=== PATIENT | female | born 1945 | race Caucasian/White ===

== ENCOUNTER 2021-05-22 13:03 | Emergency (ER) | payer MEDICARE, OTHER ==
[~2021-05-22] VITALS: Ht 167 cm; Wt 73.0 kg
--- NOTE | 2021-05-22 13:45 | ED Respiratory ---
General Chief Complaint: Chest Wall Stated Complaint: FALL;L RIB PAIN Nursing Triage Note: THE PT IS AMBULATORY TO THE ROOM WITHOUT DIFFICULTY. NO DISTRESS IS SEEN ON ARRIVAL. LOC IS NORMAL FOR THE PT. THE PT C/O OF LEFT RIB PAIN. History of Present Illness Date Seen by Provider: May 22, 2021 Time Seen by Provider: 13:25 Initial Comments 75-year-old female reports falling approximately 4 days ago injuring her left ribs by hitting it on the chair she was sitting on. She denies any head injuries or loss of consciousness. She is not on any anticoagulants. She has had histories of falls in the past and uses a cane. She has had previous rib fractures and reports similar symptoms today. She has been taking Tylenol every 8 hours for her pain. Timing/Duration: other Severity: moderate Prior Episodes/Possible Cause: occasional episodes Associated Symptoms: chest pain/soreness (Left ribs, lower lateral); No cough, No dizziness, No fever/chills, No lightheadedness, No shortness of breath Allergies and Home Medications Allergies Coded Allergies: amoxicillin (Verified Allergy, Mild, 05/22/21) Patient Home Medication List Home Medication List Reviewed: Yes Review of Systems Review of Systems Constitutional: no symptoms reported, see HPI Respiratory: see HPI; No cough; other (Left rib pain) All Other Systems Reviewed Negative Unless Noted: Yes Past Hmbxbfx-Mtimjx-Frnvun Hx Family Medical History Reviewed Nursing Family Hx Physical Exam Vital Signs - First Documented 05/22/21 13:25 Temp 36.7 Pulse 60 Resp 18 B/P (MAP) 106/73 (84) Pulse Ox 98 Capillary Refill : Less Than 3 Seconds Height: '" Weight: lbs. oz. kg; 26.00 BMI Method: General Appearance: WD/WN, no apparent distress HEENT: PERRL/EOMI, normal ENT inspection, TMs normal, pharynx normal Neck: non-tender, full range of motion, supple Respiratory: lungs clear, normal breath sounds, other (Tenderness to palpation along the left lateral ribs, no ecchymosis or erythema.) Cardiovascular: normal peripheral pulses, regular rate, rhythm Gastrointestinal: normal bowel sounds, non tender, soft Extremities: normal range of motion, non-tender, normal inspection Neurologic/Psychiatric: no motor/sensory deficits, alert, normal mood/affect, oriented x 3 Skin: normal color, warm/dry; No ecchymosis Progress/Results/Core Measures Suspected Sepsis SIRS Temperature: Pulse: 60 Respiratory Rate: 18 Blood Pressure 106 /73 Mean: 84 Results/Orders My Orders Orders - MICKY CHOU Tramadol Tablet (Ultram Tablet) (05/22/21 13:37) Ribs, Left 2-3 Views (05/22/21 13:37) Vital Signs/I&O 05/22/21 13:25 Temp 36.7 Pulse 60 Resp 18 B/P (MAP) 106/73 (84) Pulse Ox 98 Capillary Refill : Less Than 3 Seconds Blood Pressure Mean: 84 Progress Note : Time: 13:25 Progress Note Patient seen and evaluated, will obtain rib x-rays and give tramadol 50 mg orally for pain. 1410 rib x-rays show nondisplaced eighth fracture on the left. Patient reports mild improvement with the tramadol but requesting something stronger for disc harge. Discharge instructions and return precautions reviewed with her. All questions answered Diagnostic Imaging Diagonstic Imaging: Xray Plain Films/CT/US/NM/MRI: chest Comments PT STATUS: REG ER : 1945 PHYSICIAN: MICKY CHOU ADMIT DATE: 05/22/21/ER Draft Date of Exam:05/22/21 RIBS, LEFT 2-3 VIEWS HISTORY: Left rib pain COMPARISON: None TECHNIQUE: 2 views of the left ribs FINDINGS: Lung volumes are normal. No focal consolidation is seen. There is no pleural effusion or pneumothorax. The cardiac silhouette is normal in size. There is aortic atherosclerosis. There is questionable cortical irregularity at the anterior left 8th rib. There are degenerative changes throughout the spine. IMPRESSION: 1. Questionable cortical irregularity at the anterior left 8th rib, could represent a nondisplaced fracture, please correlate with the site of pain. Dictated on workstation # [id number] Dict: 05/22/21 1409 Trans: 05/22/21 1413 [facility] [id number] Interpreted by: SHAYLEE KLEIN MD Electronically signed by Reviewed: Reviewed by Me Departure Impression Primary Impression: Rib pain Additional Impressions: Fall Qualified Codes: W19.XXXA - Unspecified fall, initial encounter Fracture of eight ribs of left side Qualified Codes: S22.42XA - Multiple fractures of ribs, left side, initial encounter for closed fracture Disposition: HOME, SELF-CARE Condition: Improved Departure-Patient Inst. Decision time for Depature: 14:10 Referrals: NO,LOCAL PHYSICIAN (PCP) Primary Care Physician Patient Instructions: Rib Fracture (DC) Add. Discharge Instructions: Alternate heat and ice to the left ribs for pain, apply for 20 minutes every 2 hours. Use the hydrocodone prescription for severe pain., Do not drive while taking this medication. For mild to moderate pain: Alternate between Tylenol 650 mg and ibuprofen 600 mg every 4 hours for pain. Take deep breaths and coughs regularly. You may take your trip to get back home, stop every 2 hours to get out and walk around, taking deep breaths. Follow-up with your primary care provider if your symptoms are not improving or worsen. Return to an emergency department for new, urgent healthcare needs. All discharge instructions reviewed with patient and/or family. Voiced understanding. Scripts Oxycodone HCl/Acetaminophen (Oxycodone-Acetaminophen 5-325) 1 Each Tablet 1 EACH PO Q6H PRN for PAIN-MODERATE MDD 6, #18 TAB 0 Refills Prov: MICKY CHOU 05/22/21 MICKY CHOU May 22, 2021 13:45
--- NOTE | 2021-05-22 14:14 | Diagnostic Imaging Report ---
HISTORY: Left rib pain COMPARISON: None TECHNIQUE: 2 views of the left ribs FINDINGS: Lung volumes are normal. No focal consolidation is seen. There is no pleural effusion or pneumothorax. The cardiac silhouette is normal in size. There is aortic atherosclerosis. There is questionable cortical irregularity at the anterior left 8th rib. There are degenerative changes throughout the spine. IMPRESSION: 1. Questionable cortical irregularity at the anterior left 8th rib, could represent a nondisplaced fracture, please correlate with the site of pain. Dictated by: Dictated on workstation # [id number]
[2021-05-22] MEDS ORDERED: OXYC1TAB11 PO ×3 (14:25→16:28)
[2021-05-22 15:13] VITALS: BP 106/73
== END 2021-05-22 14:35 | disposition home or self-care (01) ==
LOC: ER 13:06
DX: S22.42XA Multiple fractures of ribs, left side, initial encounter for closed fracture (principal); W22.8XXA Striking against or struck by other objects, initial encounter
CPT/HCPCS: 71100